=== PATIENT | female | born 1985 | race Hispanic/Latino ===

== ENCOUNTER 2016-08-26 08:54 | Emergency (ER) | payer OTHER ==
[2016-08-26 09:07] VITALS: BMI 40.2
[2016-08-26 09:08] VITALS: BP 152/101; PULSE 105; RESP 16; TEMP 98.1; O2SAT 97
--- NOTE | 2016-08-26 09:17 | ED PDOC ---
Arrival/HPI <Iván Gonzalez - Last Filed: 08/26/16 09:58> - General Historian: Patient <Gigi Glez - Last Filed: 08/26/16 10:03> - General Chief Complaint: Lower Extremity Problem/Injury Time Seen by Provider: 08/26/16 09:12 - History of Present Illness Narrative History of Present Illness (Text): 08/26/16 09:13 31yo female with no PMHx who present with complaint of right 3rd toe nail throbbing pain. States she had a burning sensation last week, when she had a pedicure. Noticed discoloration of the nails. The other nails discoloration improved but the right toe pain increased with pain. She denies fever, chills, erythema, any other complaint. (Gigi Glez) Past Medical History - Provider Review Nursing Documentation Reviewed: Yes - Infectious Disease Hx of Infectious Diseases: None - Tetanus Immunization Tetanus Immunization: Unknown - Cardiac Hx Cardiac Disorders: No Hx Pacemaker: No - Pulmonary Hx Respiratory Disorders: Yes Hx Asthma: Yes - Neurological Hx Neurological Disorder: No Hx Paralysis: No - HEENT Hx HEENT Disorder: No - Renal Hx Renal Disorder: No - Endocrine/Metabolic Hx Endocrine Disorders: No - Hematological/Oncological Hx Blood Transfusions: No Hx Blood Transfusion Reaction: No - Integumentary Hx Dermatological Disorder: No - Musculoskeletal/Rheumatological Hx Musculoskeletal Disorders: No - Gastrointestinal Hx Gastrointestinal Disorders: Yes Hx Gall Bladder Disease: Yes Hx Gastroesophageal Reflux: Yes - Genitourinary/Gynecological Hx Genitourinary Disorders: No - Psychiatric Hx Psychophysiologic Disorder: Yes Hx Anxiety: Yes Hx Emotional Abuse: No Hx Physical Abuse: No Hx Substance Use: No - Surgical History Hx Appendectomy: Yes Hx Cholecystectomy: Yes Hx Tonsillectomy: Yes - Anesthesia Hx Anesthesia Reactions: Yes (NAUSEA) - Suicidal Assessment Feels Threatened In Home Enviroment: No <Gigi Glez - Last Filed: 08/26/16 10:03> Family/Social History - Physician Review Nursing Documentation Reviewed: Yes Family/Social History: Unknown Family HX Smoking Status: Never Smoked Hx Alcohol Use: No Hx Substance Use: No Hx Substance Use Treatment: No <Gigi Glez - Last Filed: 08/26/16 10:03> Allergies/Home Meds <Iván Gonzalez - Last Filed: 08/26/16 09:58> <Gigi Glez A - Last Filed: 08/26/16 10:03> Allergies/Adverse Reactions: Allergies No Known Allergies Allergy (Verified 08/26/16 09:07) Home Medications: Home Meds Medication Instructions Recorded Confirmed Pantoprazole Sodium [Protonix] 20 mg PO QAM 04/27/16 08/26/16 Loratadine [Claritin] 10 mg PO DAILY 04/28/16 08/26/16 Review of Systems - Physician Review All systems were reviewed & negative as marked: Yes - Review of Systems Constitutional: Normal Eyes: Normal ENT: Normal Respiratory: Normal Cardiovascular: Normal Gastrointestinal: Normal Genitourinary Female: Normal Musculoskeletal: Normal Skin: Other (Right 3rd toe pain/redness) Neurological: Normal Endocrine: Normal Hemo/Lymphatic: Normal Psychiatric: Normal <Gigi Glez A Last Filed: 08/26/16 10:03> Physical Exam Vital Signs Reviewed: Yes Temperature: Afebrile Blood Pressure: Normal Pulse: Regular Respiratory Rate: Normal Appearance: Positive for: Well-Appearing, Non-Toxic, Comfortable Pain Distress: None Mental Status: Positive for: Alert and Oriented X 3 - Systems Exam Head: Present: Atraumatic, Normocephalic Pupils: Present: PERRL Extroacular Muscles: Present: EOMI Conjunctiva: Present: Normal Mouth: Present: Moist Mucous Membranes Neck: Present: Normal Range of Motion Respiratory/Chest: Present: Clear to Auscultation, Good Air Exchange. No: Respiratory Distress, Accessory Muscle Use Cardiovascular: Present: Regular Rate and Rhythm, Normal S1, S2. No: Murmurs Abdomen: Present: Normal Bowel Sounds. No: Tenderness, Distention, Peritoneal Signs Back: Present: Normal Inspection Upper Extremity: Present: Normal Inspection. No: Cyanosis, Edema Lower Extremity: Present: Normal Inspection. No: Edema Neurological: Present: GCS=15, CN II-XII Intact, Speech Normal Skin: Present: Warm, Dry, Normal Color, Other (Blood collection noted under right 3rd toe nail. Tender to palpation). No: Rashes Psychiatric: Present: Alert, Oriented x 3, Normal Insight, Normal Concentration <Gigi Glez A - Last Filed: 08/26/16 10:03> Vital Signs Temp Pulse Resp BP Pulse Ox 08/26/16 09:07 98.1 F 105 H 16 152/101 H 97 Medical Decision Making <Iván Gonzalez - Last Filed: 08/26/16 09:58> <Gigi Glez - Last Filed: 08/26/16 10:03> ED Course and Treatment: 08/26/16 10:02 Nail was cleaned with betadine, trepidation done with electric cautery. Very small blood expressed. Nail cleansed and bacitracine applied and dressed. Pt placed on prophylactic abx. Referred to her PMD. TRT ED for any new or worsening symptoms. (Gigi Glez) - Medication Orders Current Medication Orders: Discontinued Medications Cephalexin Monohydrate (Keflex) 500 mg PO STAT STA PRN Reason: Protocol Stop: 08/26/16 09:14 Last Admin: 08/26/16 09:26 Dose: 500 MG Tramadol HCl (Ultram) 50 mg PO STAT STA Stop: 08/26/16 09:13 Last Admin: 08/26/16 09:26 Dose: 50 MG - PA / [employer] MANAGER / Resident Statement / has reviewed & agrees with the documentation as recorded. <Iván Gonzalez - Last Filed: 08/26/16 09:58> Disposition/Present on Arrival <Iván Gonzalez - Last Filed: 08/26/16 09:58> - Present on Arrival Any Indicators Present on Arrival: No History of DVT/PE: No History of Uncontrolled Diabetes: No Urinary Catheter: No History of Decub. Ulcer: No History Surgical Site Infection Following: None - Disposition Have Diagnosis and Disposition been Completed?: Yes Disposition Time: 10:00 Patient Plan: Discharge <Gigi Glez - Last Filed: 08/26/16 10:03> - Disposition Diagnosis: Subungual hemorrhage of toenail Disposition: HOME/ ROUTINE Condition: STABLE Discharge Instructions (ExitCare): [place] (ED) Additional Instructions: Follow up with your Doctor Return to ED for any new or worsening symptoms Prescriptions: Cephalexin [Keflex] 500 mg PO QID #28 capsule Ibuprofen [Motrin Tab] 600 mg PO Q6 #20 tab Referrals: [facility] [place]] - Follow up with primary Forms: WORK NOTE
== END 2016-08-26 10:39 | disposition home or self-care (01) ==
LOC: ED 08:54
DX: S90.121A Contusion of right lesser toe(s) without damage to nail, initial encounter (principal); X58.XXXA Exposure to other specified factors, initial encounter; Y93.E8 Activity, other personal hygiene; Y92.89 Other specified places as the place of occurrence of the external cause

== ENCOUNTER 2016-09-06 05:54 | Emergency (ER) | payer OTHER ==
[2016-09-06 05:55] VITALS: BMI 40.2
[2016-09-06 06:25] VITALS: TEMP 97.8
--- NOTE | 2016-09-06 06:54 | ED PDOC ---
Arrival/HPI - General Chief Complaint: Abdominal Pain Time Seen by Provider: 09/06/16 06:06 Historian: Patient - History of Present Illness Narrative History of Present Illness (Text): 09/06/16 06:40 Pt. to ED for evaluation of onset Nausea, diarrhea which began yesterday.Today with lower abdominal pain specifically to left lower abdomen associated with bloody bowel movement.No hx. of any fever, chills. Past Medical History - Provider Review Nursing Documentation Reviewed: Yes - Travel History Have you recently traveled outside [place] w/in the past 3 mons?: No - Infectious Disease Hx of Infectious Diseases: None - Tetanus Immunization Tetanus Immunization: Unknown - Cardiac Hx Cardiac Disorders: No Hx Pacemaker: No - Pulmonary Hx Respiratory Disorders: Yes Hx Asthma: Yes - Neurological Hx Neurological Disorder: No Hx Paralysis: No - HEENT Hx HEENT Disorder: No - Renal Hx Renal Disorder: No - Endocrine/Metabolic Hx Endocrine Disorders: No - Hematological/Oncological Hx Blood Transfusions: No Hx Blood Transfusion Reaction: No - Integumentary Hx Dermatological Disorder: No - Musculoskeletal/Rheumatological Hx Musculoskeletal Disorders: No - Gastrointestinal Hx Gastrointestinal Disorders: Yes Hx Gall Bladder Disease: Yes Hx Gastroesophageal Reflux: Yes - Genitourinary/Gynecological Hx Genitourinary Disorders: No - Psychiatric Hx Psychophysiologic Disorder: Yes Hx Anxiety: Yes Hx Emotional Abuse: No Hx Physical Abuse: No Hx Substance Use: No - Surgical History Hx Appendectomy: Yes Hx Cholecystectomy: Yes Hx Tonsillectomy: Yes - Anesthesia Hx Anesthesia Reactions: Yes (NAUSEA) - Suicidal Assessment Feels Threatened In Home Enviroment: No Family/Social History - Physician Review Nursing Documentation Reviewed: Yes Family/Social History: No Known Family HX Smoking Status: Never Smoked Hx Alcohol Use: No Hx Substance Use: No Hx Substance Use Treatment: No Allergies/Home Meds Allergies/Adverse Reactions: Allergies No Known Allergies Allergy (Verified 08/26/16 09:07) Home Medications: Home Meds Medication Instructions Recorded Confirmed Pantoprazole Sodium [Protonix] 20 mg PO QAM 04/27/16 08/26/16 Loratadine [Claritin] 10 mg PO DAILY 04/28/16 08/26/16 Review of Systems - Review of Systems Constitutional: Normal Eyes: Normal ENT: Normal Respiratory: Normal Cardiovascular: Normal Gastrointestinal: Abdominal Pain, Diarrhea Genitourinary Female: Normal Musculoskeletal: Normal Skin: Normal Neurological: Normal Endocrine: Normal Hemo/Lymphatic: Normal Psychiatric: Normal Physical Exam Vital Signs Temp Pulse Resp BP Pulse Ox 09/06/16 06:10 97.8 F 87 18 124/66 99 Temperature: Afebrile Blood Pressure: Normal Pulse: Regular Respiratory Rate: Normal Appearance: Positive for: Well-Appearing, Non-Toxic, Comfortable Pain Distress: None Mental Status: Positive for: Alert and Oriented X 3 - Systems Exam Head: Present: Atraumatic, Normocephalic Pupils: Present: PERRL Extroacular Muscles: Present: EOMI Conjunctiva: Present: Normal Mouth: Present: Moist Mucous Membranes Neck: Present: Normal Range of Motion Respiratory/Chest: Present: Clear to Auscultation, Good Air Exchange. No: Respiratory Distress, Accessory Muscle Use Cardiovascular: Present: Regular Rate and Rhythm, Normal S1, S2. No: Murmurs Abdomen: Present: Tenderness (left lower abdomen), Normal Bowel Sounds. No: Distention, Peritoneal Signs Rectal: No: Occult Blood, Hemorrhoids Back: Present: Normal Inspection Upper Extremity: Present: Normal Inspection. No: Cyanosis, Edema Lower Extremity: Present: Normal Inspection. No: Edema Neurological: Present: GCS=15, CN II-XII Intact, Speech Normal, Motor Func Grossly Intact, Normal Sensory Function Skin: Present: Warm, Dry, Normal Color. No: Rashes Psychiatric: Present: Alert, Oriented x 3, Normal Insight, Normal Concentration Medical Decision Making - Medication Orders Current Medication Orders: Sodium Chloride (Sodium Chloride 0.9%) 1,000 mls @ 999 mls/hr IV .Q1H1M STA Stop: 09/06/16 07:42 Discontinued Medications Home Med (*Refrigerator Open) Confirm Administered Dose 1 unit XX .STK-MED ONE Stop: 09/06/16 06:07 Morphine Sulfate (Morphine) 2 mg IVP STAT STA Stop: 09/06/16 06:43 Ondansetron HCl (Zofran Inj) 4 mg IVP ONCE ONE Stop: 09/06/16 06:43 Pantoprazole Sodium (Protonix Inj) 40 mg IVP ONCE STA Stop: 09/06/16 06:43 - Transfer of Care Patient signed out to Dr:: Heather Pending Labs:: Labs/reassess/final disposition Disposition/Present on Arrival - Present on Arrival Any Indicators Present on Arrival: No History of DVT/PE: No History of Uncontrolled Diabetes: No Urinary Catheter: No History of Decub. Ulcer: No History Surgical Site Infection Following: None - Disposition Have Diagnosis and Disposition been Completed?: No Diagnosis: Abdominal pain Disposition Time: 07:00 Condition: STABLE
[2016-09-06] MEDS: Morphine 2 mg/ml ISec IVP STA ×2 (07:00→09:09)
[2016-09-06] MEDS: Sodium Chloride 0.9% 1,000 ML IV STA (07:01)
[2016-09-06 07:03] LABS: HEMATOCRIT 43.7 % (36.0-48.0); MEAN CELL VOLUME 86.2 fL (80.0-105.0); MEAN CORPUSCULAR HEMOGLOBIN 29.8 pg (25.0-35.0); MEAN CORPUSCULAR HGB CONC 34.6 g/dl (31.0-37.0); RED CELL DISTRIBUTION WIDTH 12.6 % (11.5-14.5); WHITE BLOOD COUNT 8.8 10^3/ul (4.5-11.0)
[2016-09-06 07:13] LABS: INR 0.99 (0.93-1.08); PARTIAL THROMBOPLASTIN TIME 28.1 Seconds (23.7-30.8)
[2016-09-06 07:18] LABS: ALKALINE PHOSPHATASE 66 U/L (38-133); ALT/SGPT 31 U/L (7-56); AST/SGOT 26 U/L (15-39); BILIRUBIN,TOTAL 0.7 mg/dL (0.2-1.3); BLOOD UREA NITROGEN 11 mg/dL (7-21); CALCIUM 9.2 mg/dL (8.4-10.5); CARBON DIOXIDE 23 mmol/L (21-33); CHLORIDE 107 mmol/L (98-107); GFR AFRICAN-AMERICAN > 60; GLUCOSE,RANDOM 98 mg/dL (70-110); LIPASE 61 U/L (23-300); POTASSIUM 4.2 mmol/L (3.6-5.0); SODIUM 141 mmol/L (132-148); TOTAL PROTEIN 7.7 g/dL (5.8-8.3)
--- NOTE | 2016-09-06 07:36 | ED PDOC ---
Physical Exam Vital Signs Temp Pulse Resp BP Pulse Ox 09/06/16 11:06 89 18 118/79 98 09/06/16 08:54 92 H 16 121/83 98 09/06/16 07:54 87 14 122/76 100 09/06/16 06:10 97.8 F 87 18 124/66 99 Medical Decision Making ED Course and Treatment: 09/06/16 07:00 Patient signed out to me by Dr. Albert pending labs, reassessment, and final disposition. Patient has had a history of intermittent abdominal pain with intermittent diarrhea for several years. Patient's GI, Dr. Taylor, performed a colonoscopy last year. Patient states she has left sided abdominal pain with some bloody stool this morning. On reexamination, patient is comfortable with mild left sided discomfort on palpation. Bloodwork is unremarkable. Patient is cardiovascularly stable. Plan is to consult Dr. Taylor and discuss treatment plan. Patient given Morphine prior to my initial evaluation. On reassessment, she is more uncomfortable with now diffuse moderate pain. Based on increased pain and change in character and location of pain, risks/benefits of obtaining CT reviewed with patient. Dr. Taylor updated. Based on prior history, increased pain and location, CT ordered after risks and benefits reviewed with patient. PROCEDURE: CT Abdomen and Pelvis with contrast Load Planner : Sarah Dale V. IMPRESSION: No bowel pathology suggested. Bilateral adnexal hypodensities most consistent with ovarian physiological cystic changes in this age group -as discussed above Status post cholecystectomy. No interval progressive intra or extrahepatic bile duct dilatation suggested On reexamination, patient is comfortable with minimal abdominal discomfort. Case discussed with Dr. Taylor, based on persistent pain and limitations of CT and prior history, will initiate Cipro and Flagyl. Limitations of CT scan reviewed with patient. Patient agrees with discharge plan. Patient stable for discharge. 09/06/16 16:43 - Lab Interpretations Lab Results: 09/06/16 06:50 09/06/16 06:50 Lab Results 09/06/16 07:30: Urine Color Yellow, Urine Appearance Sl cloudy, Urine pH 6.0, Ur Specific [place] 1.025, Urine Protein Negative, Urine Glucose (UA) Negative, Urine Ketones Negative, Urine Blood Trace-lysed H, Urine Nitrate Negative, Urine Bilirubin Negative, Urine Urobilinogen 0.2, Ur Leukocyte Esterase Negative , Urine RBC Negative, Urine WBC Negative, Ur Epithelial Cells 6 - 8, Urine HCG, Qual Negative 09/06/16 06:50: WBC 8.8, RBC 5.07, Hgb 15.1, Hct 43.7, MCV 86.2, MCH 29.8, MCHC 34.6, RDW 12.6, Plt Count 328, MPV 9.0, PT 10.7, INR 0.99, APTT 28.1, Sodium 141 , Potassium 4.2, Chloride 107, Carbon Dioxide 23, Anion Gap 15, BUN 11, Creatinine 0.7, Est GFR ( Amer) > 60, Est GFR (Non-Af Amer) > 60, Random Glucose 98, Calcium 9.2, Total Bilirubin 0.7, AST 26, ALT 31, Alkaline Phosphatase 66, Total Protein 7.7, Albumin 3.9, Globulin 3.8, Albumin/Globulin Ratio 1.0 L, Lipase 61 - RAD Interpretation Radiology Orders: 09/06/16 08:59 ABD PELVIS PO & IV CONTRAST [CT] Stat Layout Mechanic: Radiologist - Medication Orders Current Medication Orders: Discontinued Medications Home Med (*Refrigerator Open) Confirm Administered Dose 1 unit XX .STK-MED ONE Stop: 09/06/16 06:07 Sodium Chloride (Sodium Chloride 0.9%) 1,000 mls @ 999 mls/hr IV .Q1H1M STA Stop: 09/06/16 07:42 Last Admin: 09/06/16 07:01 Dose: 999 MLS/HR eMAR Start Stop Document 09/06/16 07:01 MR (Rec: 09/06/16 07:01 [facility]-[id number]) Intravenous Solution Start Date 09/06/16 Start Time 07:01 End Date 09/06/16 End time 08:01 Total Infusion Time 60 Iohexol (Omnipaque 240 (50 Ml)) Confirm Administered Dose 50 ml .ROUTE .STK-MED ONE Stop: 09/06/16 09:04 Iohexol (Omnipaque 350 100 Ml) Confirm Administered Dose 350 mg .ROUTE .STK-MED ONE Stop: 09/06/16 09:56 Morphine Sulfate (Morphine) 2 mg IVP STAT STA Stop: 09/06/16 06:43 Last Admin: 09/06/16 07:00 Dose: 2 MG MAR Pain Assessment Document 09/06/16 07:00 MR (Rec: 09/06/16 07:00 MR [facility] [place]-[id number]) Pain Reassessment Is this a pain reassessment? No Sleep Is patient sleeping during reassessment? No Presence of Pain Presence of Pain Yes Pain Scale Used Pain Scale Used Numeric Location Left, Right or Bilateral Left Upper or Lower Lower Pain Location Body Site Abdomen Description Description Cramping Intensity of Pain at present 7 Aggravating Factors None Alleviating Factors/Management Medication Techniques Alleviating Factors Medication IVP Administration Document 09/06/16 07:00 MR (Rec: 09/06/16 07:00 MR [facility] [place]-[id number]) Charges for Administration # of IVP Administrations 1 Morphine Sulfate (Morphine) 2 mg IVP STAT STA Stop: 09/06/16 09:03 Last Admin: 09/06/16 09:09 Dose: 2 MG MAR Pain Assessment Document 09/06/16 09:09 SE (Rec: 09/06/16 09:09 [place] [facility] [id number][place] Pain Reassessment Is this a pain reassessment? No Sleep Is patient sleeping during reassessment? No Presence of Pain Presence of Pain Yes Pain Scale Used Pain Scale Used Numeric IVP Administration Document 09/06/16 09:09 SE (Rec: 09/06/16 09:09 [facility] [id number][place] Charges for Administration # of IVP Administrations 1 Ondansetron HCl (Zofran Inj) 4 mg IVP ONCE ONE Stop: 09/06/16 06:43 Last Admin: 09/06/16 07:00 Dose: 4 MG IVP Administration Document 09/06/16 07:00 MR (Rec: 09/06/16 07:01 MR [facility] [place]-[id number]) Charges for Administration # of IVP Administrations 1 Pantoprazole Sodium (Protonix Inj) 40 mg IVP ONCE STA Stop: 09/06/16 06:43 Last Admin: 09/06/16 07:01 Dose: 40 MG IVP Administration Document 09/06/16 07:01 MR (Rec: 09/06/16 07:01 MR [facility] [place]-[id number]) Charges for Administration # of IVP Administrations 1 - Scribe Statement The provider has reviewed the documentation as recorded by the Stephen Kwan Provider Scribe Attestation: All medical record entries made by the Scribe were at my direction and personally dictated by me. I have reviewed the chart and agree that the record accurately reflects my personal performance of the history, physical exam, medical decision making, and the department course for this patient. I have also personally directed, reviewed, and agree with the discharge instructions and disposition. Disposition/Present on Arrival - Present on Arrival Any Indicators Present on Arrival: No History of DVT/PE: No History of Uncontrolled Diabetes: No Urinary Catheter: No History of Decub. Ulcer: No History Surgical Site Infection Following: None - Disposition Have Diagnosis and Disposition been Completed?: Yes Diagnosis: Abdominal pain Disposition: HOME/ ROUTINE Disposition Time: 11:00 Patient Plan: Discharge Condition: GOOD Discharge Instructions (ExitCare): Abdominal Pain (ED) Additional Instructions: For any fevers, any return or worsening or change in abdominal pain, any return of dark or bloody stools, any chest pain or shortness of breath, any vomiting or dark/bloody diarrhea, any worsening of any symptoms, get rechecked. Follow-up with Dr. Taylor as directed. Prescriptions: Ciprofloxacin [Cipro] 500 mg PO BID #14 tab Metronidazole [Flagyl] 500 mg PO TID #21 tablet Referrals: Josse Magaña MD [Primary Care Provider] - Follow up with primary Kajal Taylor MD [Medical Doctor] - Follow up with primary
[2016-09-06 07:47] LABS: URINE BILIRUBIN NEGATIVE (NEGATIVE); URINE BLOOD TRACE-LYSED (NEGATIVE); URINE GLUCOSE (UA) NEGATIVE (NEGATIVE); URINE KETONE NEGATIVE (NEGATIVE); URINE LEUKOCYTE ESTERASE NEGATIVE Leu/uL (NEGATIVE); URINE PROTEIN NEGATIVE mg/dL (<30 mg/dL); URINE UROBILINOGEN 0.2 E.U./dL (<1 E.U./dL)
[2016-09-06 07:50] LABS: URINE APPEARANCE SL CLOUDY (CLEAR); URINE COLOR YELLOW (YELLOW)
[2016-09-06 07:58] LABS: URINE RBC NEGATIVE /hpf (0-2); URINE WBC NEGATIVE /hpf (0-6)
[2016-09-06 08:55] VITALS: O2SAT 98
[2016-09-06] MEDS ORDERED: Iohexol 240 (50 ml) ONE (09:03)
[2016-09-06] MEDS ORDERED: Iohexol 350 MG/100 ML VIAL ONE (09:55)
[2016-09-06 11:07] VITALS: BP 118/79; PULSE 89; RESP 18
--- NOTE | 2016-09-06 11:07 | CT ---
PROCEDURE: CT Abdomen and Pelvis with contrast HISTORY: diffuse abdominal pain, possible colitis COMPARISON: 03/24/2016 TECHNIQUE: Contrast dose: Omnipaque 240 (4 cups) of oral contrast). Omnipaque 350 100 mL Radiation dose: Total exam DLP = 1182 mGy-cm. This CT exam was performed using one or more of the following dose reduction techniques: Automated exposure control, adjustment of the mA and/or kV according to patient size, and/or use of iterative reconstruction technique. FINDINGS: LOWER THORAX: Unremarkable. LIVER: The prior focal fat right lateral to the falciform ligament is unchanged. GALLBLADDER AND BILE DUCTS: Status postcholecystectomy gallbladder clip. No interval progressive intra or extrahepatic bile duct dilatation suggested. PANCREAS: Unremarkable. No gross lesion or ductal dilatation. SPLEEN: Unremarkable. ADRENALS: Unremarkable. No mass. KIDNEYS AND URETERS: Unremarkable. No hydronephrosis. No solid mass. VASCULATURE: Unremarkable. No aortic aneurysm. BOWEL: Rectosigmoid mild redundancy. No obstruction. No gross mural thickening. No diverticulitis APPENDIX: Again not visualized. No pericecal inflammatory changes PERITONEUM: Unremarkable. No free fluid. No free air. LYMPH NODES: Unremarkable. No enlarged lymph nodes. No significant appearing mesenteric adenitis suggested on this exam BLADDER: Unremarkable. REPRODUCTIVE: Bilateral adnexal hypodensities probably relating to bilateral ovarian physiological ovarian cysts. That on the left is larger approximately 3 cm. If needed, these can be assessed with pelvic ultrasound BONES: No acute fracture. OTHER FINDINGS: None. IMPRESSION: No bowel pathology suggested. Bilateral adnexal hypodensities most consistent with ovarian physiological cystic changes in this age group -as discussed above Status post cholecystectomy. No interval progressive intra or extrahepatic bile duct dilatation suggested
== END 2016-09-06 11:58 | disposition home or self-care (01) ==
LOC: ED 05:54
DX: R10.30 Lower abdominal pain, unspecified (principal)
CPT/HCPCS: 74177; 80053; 81001; 83690; 84703; 85027; 85610; 85730; 96361; 96374; 96375; 96376; 99284; C9113; J2270; J2405; J7040; Q9966; Q9967

== ENCOUNTER 2016-09-29 19:44 | Emergency (ER) | payer OTHER ==
[2016-09-29 20:33] VITALS: BP 127/84; PULSE 86; RESP 16; TEMP 98.7; O2SAT 95; BMI 39.3
--- NOTE | 2016-09-29 21:01 | ED PDOC ---
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 Pt. stated that she was exposured to the blood without sticking or have cut on the body. Pt. stated that her blood was on her scrub pants which she immediately check on the bilateral thigh and noted to have no cut/ laceration/abrasion. Pt. stated that she is well with no medical or psychological complaints. (Moy Haney) Past Medical History - Provider Review Nursing Documentation Reviewed: Yes - Infectious Disease Hx of Infectious Diseases: None - Tetanus Immunization Tetanus Immunization: Unknown - Cardiac Hx Cardiac Disorders: No Hx Pacemaker: No - Pulmonary Hx Respiratory Disorders: Yes Hx Asthma: Yes - Neurological Hx Neurological Disorder: No - HEENT Hx HEENT Disorder: No - Renal Hx Renal Disorder: No - Endocrine/Metabolic Hx Endocrine Disorders: No - Hematological/Oncological Hx Blood Disorders: No - Integumentary Hx Dermatological Disorder: No - Musculoskeletal/Rheumatological Hx Musculoskeletal Disorders: No - Gastrointestinal Hx Gastrointestinal Disorders: Yes Hx Gall Bladder Disease: Yes Hx Gastroesophageal Reflux: Yes - Genitourinary/Gynecological Hx Genitourinary Disorders: No - Psychiatric Hx Psychophysiologic Disorder: Yes Hx Anxiety: Yes Hx Substance Use: No - Surgical History Hx Appendectomy: Yes Hx Cholecystectomy: Yes Hx Tonsillectomy: Yes - Anesthesia Hx Anesthesia Reactions: Yes (NAUSEA) - Suicidal Assessment Feels Threatened In Home Enviroment: No <Moy Haney - Last Filed: 09/29/16 20:57> Family/Social History - Physician Review Nursing Documentation Reviewed: Yes Family/Social History: Unknown Family HX Smoking Status: Never Smoked Hx Alcohol Use: No Hx Substance Use: No Hx Substance Use Treatment: No <Moy Haney - Last Filed: 09/29/16 20:57> Allergies/Home Meds <Moy Haney - Last Filed: 09/29/16 20:57> <Nick Albert - Last Filed: 09/29/16 21:08> Allergies/Adverse Reactions: Allergies No Known Allergies Allergy (Verified 08/26/16 09:07) Home Medications: Home Meds Medication Instructions Recorded Confirmed Pantoprazole Sodium [Protonix] 20 mg PO QAM 04/27/16 08/26/16 Loratadine [Claritin] 10 mg PO DAILY 04/28/16 08/26/16 Review of Systems - Review of Systems Constitutional: absent: Fatigue, Fevers Eyes: absent: Vision Changes ENT: absent: Hearing Changes Respiratory: absent: Cough, Sputum Cardiovascular: absent: Chest Pain Gastrointestinal: absent: Abdominal Pain, Nausea, Vomiting Musculoskeletal: absent: Arthralgias, Back Pain, Neck Pain, Joint Swelling, Myalgias Skin: absent: Rash, Pruritis, Skin Lesions, Laceration, Abscess, Ulcer Neurological: absent: Headache, Dizziness, Focal Weakness Psychiatric: absent: Anxiety, Depression, Suicidal Ideation <Moy Haney - Last Filed: 09/29/16 20:57> Physical Exam Vital Signs Reviewed: Yes Temperature: Afebrile Blood Pressure: Normal Pulse: Regular Respiratory Rate: Normal Appearance: Positive for: Well-Appearing, Non-Toxic, Comfortable Pain Distress: None Mental Status: Positive for: Alert and Oriented X 3 - Systems Exam Head: Present: Atraumatic, Normocephalic Pupils: Present: PERRL Extroacular Muscles: Present: EOMI Conjunctiva: Present: Normal Mouth: Present: Moist Mucous Membranes Neck: Present: Normal Range of Motion Respiratory/Chest: Present: Clear to Auscultation, Good Air Exchange. No: Respiratory Distress, Accessory Muscle Use Cardiovascular: Present: Regular Rate and Rhythm, Normal S1, S2. No: Murmurs Abdomen: Present: Normal Bowel Sounds. No: Tenderness, Distention, Peritoneal Signs Back: Present: Normal Inspection Upper Extremity: Present: Normal Inspection. No: Cyanosis, Edema Lower Extremity: Present: Normal Inspection. No: Edema Neurological: Present: GCS=15, Speech Normal, Motor Func Grossly Intact, Gait Normal, Memory Normal Skin: Present: Warm, Dry, Normal Color. No: Rashes Psychiatric: Present: Alert, Oriented x 3, Normal Insight, Normal Concentration <Moy Haney - Last Filed: 09/29/16 20:57> Medical Decision Making <Moy Haney - Last Filed: 09/29/16 20:57> <Nick Albert - Last Filed: 09/29/16 21:08> ED Course and Treatment: 09/29/16 21:01 -Pt. has no direct open wound or needle stick. -Pt. stated that she refused post exposure medication including truvada and isentress as she has no direct fluid with no skin breaking. -Discharge home with education on follow up with your own pmd and employee health within 2 days, return to the ER for any new or worsening signs or symptoms. (Moy Haney) - PA / MOLDING PROCESS TECHNICIAN / Resident Statement / has reviewed & agrees with the documentation as recorded. / has examined the patient and agrees with the treatment plan. <Moy Haney - Last Filed: 09/29/16 20:57> - PA / MOLDING PROCESS TECHNICIAN / Resident Statement / has reviewed & agrees with the documentation as recorded. / has examined the patient and agrees with the treatment plan. <Nick Albert - Last Filed: 09/29/16 21:08> Disposition/Present on Arrival - Present on Arrival Any Indicators Present on Arrival: No History of DVT/PE: No History of Uncontrolled Diabetes: No Urinary Catheter: No History of Decub. Ulcer: No History Surgical Site Infection Following: None - Disposition Have Diagnosis and Disposition been Completed?: Yes Disposition Time: 21:04 Patient Plan: Discharge <Moy Haney - Last Filed: 09/29/16 20:57> <Nick Albert - Last Filed: 09/29/16 21:08> - Disposition Diagnosis: Employee exposure to body fluids Disposition: HOME/ ROUTINE Condition: GOOD Additional Instructions: Discharge home with education on follow up with your own pmd and employee health within 2 days, return to the ER for any new or worsening signs or symptoms. Referrals: [facility] [place] - Follow up with primary Todd Salazar MD [Staff Provider] - Follow up with primary Forms: WORK NOTE, [employer] [facility] (Congolese)
== END 2016-09-29 21:15 | disposition home or self-care (01) ==
LOC: ED 19:44
DX: Z77.21 Contact with and (suspected) exposure to potentially hazardous body fluids (principal)